=== PATIENT | male | born 1975 | race Asian ===

== ENCOUNTER 2022-07-12 09:11 | Emergency (ER) | payer BC ==
[2022-07-12 09:53] LABS: BASOPHILS # (AUTO) 0.1 10^3/uL (0.0-0.1); BASOPHILS % (AUTO) 0.7 %; EOSINOPHILS # (AUTO) 0.1 10^3/uL (0.0-0.7); EOSINOPHILS % (AUTO) 1.1 %; HCT - HEMATOCRIT 47.4 % (42.0-52.0); HGB - HEMOGLOBIN 15.9 g/dL (14.0-18.0); LYMPHOCYTES # (AUTO) 2.1 10^3/uL (1.5-3.5); LYMPHOCYTES % (AUTO) 24.3 %; MEAN CORPUSCULAR HEMOGLOBIN 30.6 pg (27.0-31.0); MEAN CORPUSCULAR HGB CONC 33.5 g/dL (32.0-36.0); MEAN CORPUSCULAR VOLUME 91.2 fL (80.0-94.0); MONOCYTES # (AUTO) 0.5 10^3/uL (0.0-1.0); MONOCYTES % (AUTO) 5.7 %; NEUTROPHILS # (AUTO) 5.9 10^3/uL (1.5-6.6); NEUTROPHILS % (AUTO) 67.7 %; PLT - PLATELET COUNT 210 10^3/uL (130-450); WHITE BLOOD COUNT 8.7 x10^3/uL (4.8-10.8)
--- NOTE | 2022-07-12 09:57 | XRAY Report ---
PROCEDURE: Chest 1 View X-Ray INDICATIONS: Chest pain TECHNIQUE: One view of the chest was acquired. COMPARISON: None FINDINGS: Surgical changes and devices: None. Lungs and pleura: No pleural effusions or pneumothorax. Lungs are clear. Mediastinum: Mediastinal contours appear normal. Heart size is normal. Bones and chest wall: No suspicious bony lesions. Overlying soft tissues appear unremarkable. IMPRESSION: No acute radiographic abnormality. Reviewed by: Jarad Cruz MD on 07/12/2022 9:56 AM PDT Approved by: Jarad Cruz MD on 07/12/2022 9:56 AM PDT Station ID: [id number]
[2022-07-12 10:07] LABS: ALBUMIN 4.6 g/dL (3.2-5.5); ALBUMIN/GLOBULIN RATIO 1.5 (1.0-2.2); BILIRUBIN,TOTAL 1.1 mg/dL (0.2-1.0); CALCIUM 9.7 mg/dL (8.5-10.3); CREATININE 1.1 mg/dL (0.6-1.2); POTASSIUM 4.2 mmol/L (3.5-5.0); TOTAL PROTEIN 7.6 g/dL (6.7-8.2)
[2022-07-12 13:30] VITALS: BP 147/89
--- NOTE | 2022-07-12 13:53 | ED Physician Documentation ---
PD HPI CHEST PAIN - Stated complaint Stated Complaint: L ARM TINGLING/SORENESS - Chief complaint Chief Complaint: Ext Problem - History obtained from History obtained from: Patient - History of Present Illness Timing - onset: How many days ago (4) Timing - onset during: Rest Timing - duration: Days (4) Timing - details: Abrupt onset, Now resolved, Waxing and waning Pain level now: 0 Quality: Tightness, Sharp, Pain Location: Left shoulder/arm Radiation: No: Jaw, Neck, Back, Abdominal, Left upper extremity, Right upper extremity Improved by: Nothing Worsened by: Other (nothing) Associated symptoms: No: Shortness of air, Diaphoresis, Nausea, Vomiting, Feeling faint / dizzy, General Weakness, Palpitations, Cough Similar symptoms before: Has not had sx before Recently seen: Other (had covid booster 2 wks ago.) - Additional information Additional information: Kimberly Hurtado is a 46-year-old male without specific past medical history who received his COVID booster 2 weeks ago and 4 days ago developed some numbness to his left arm that eventually radiated to the forearm and this is resolved. He has had recurrent episodes of this numbness and pain without specific modifying factors. He has had this occur at rest only and he has had no exertional component no diaphoresis no nausea no shortness of breath and no near syncope. He is currently symptom-free. He denies any pain in his neck. Denies any shortness of breath. Review of Systems Constitutional: denies: Fever Eyes: denies: Decreased vision Ears: denies: Ear pain Nose: denies: Rhinorrhea / runny nose, Congestion Throat: denies: Sore throat Cardiac: reports: Chest pain / pressure. denies: Palpitations, Pedal edema, Ca lf pain Respiratory: denies: Dyspnea, Cough, Wheezing GI: denies: Abdominal Pain, Nausea, Vomiting, Constipation, Diarrhea : denies: Dysuria Skin: denies: Rash Musculoskeletal: reports: Extremity pain. denies: Neck pain, Back pain Neurologic: denies: Generalized weakness, Focal weakness, Numbness PD PAST MEDICAL HISTORY - Past Medical History Past Medical History: No - Past Surgical History Past Surgical History: No - Present Medications Home Medications: Ambulatory Orders Medication Instructions Recorded Confirmed No Known Home Medications 07/12/22 07/12/22 - Allergies Allergies/Adverse Reactions: Allergies Allergy/AdvReac Type Severity Reaction Status Date / Time No Known Drug Allergies Allergy Verified 07/12/22 09:25 - Social History Does the pt smoke?: No Smoking Status: Never smoker Does the pt drink ETOH?: Yes Does the pt have substance abuse?: No - Immunizations Immunizations are current?: Yes PD ED PE NORMAL - Vitals Vital signs reviewed: Yes (Hypertensive mild) - General General: Alert and oriented X 3, No acute distress, Well developed/nourished - HEENT HEENT: Atraumatic, PERRL, EOMI - Neck Neck: Supple, no meningeal sign, No bony TTP - Cardiac Cardiac: RRR, No murmur - Respiratory Respiratory: No respiratory distress, Clear bilaterally - Abdomen Abdomen: Normal bowel sounds, Soft, Non tender, Non distended, No organomegaly - Back Back: No CVA TTP, No spinal TTP - Derm Derm: Normal color, Warm and dry, No rash - Extremities Extremities: No deformity, No edema - Neuro Neuro: Alert and oriented X 3, testing director 2-12 intact, No motor deficit, No sensory deficit, Normal speech Eye Opening: Spontaneous Motor: Obeys Commands Verbal: Oriented GCS Score: 15 - Psych Psych: Normal mood, Normal affect Results - Vitals Vitals: Vital Signs - 24 hr 07/12/22 07/12/22 09:18 13:29 Temperature 36.8 C 36.9 C Heart Rate 86 76 Respiratory 16 18 Rate Blood Pressure 137/91 H 147/89 H O2 Saturation 98 99 Oxygen O2 Source Room air - EKG (time done) 0927 Rate: Rate (enter#) (81) Rhythm: NSR Ischemia: Normal ST segments Compare to prior EKG: Old EKG unavailable Computer interpretation: Agree with computer - Labs Labs: Laboratory Tests 07/12/22 07/12/22 07/12/22 09:48 09:48 09:48 WBC 8.7 RBC 5.20 Hgb 15.9 Hct 47.4 MCV 91.2 MCH 30.6 MCHC 33.5 RDW 12.0 Plt Count 210 MPV 12.0 H Neut # (Auto) 5.9 Lymph # (Auto) 2.1 [place] # (Auto) 0.5 Eos # (Auto) 0.1 Baso # (Auto) 0.1 Absolute Nucleated RBC 0.00 Nucleated RBC % 0.0 Sodium 139 Potassium 4.2 Chloride 103 Carbon Dioxide 31 Anion Gap 5.0 L BUN 17 Creatinine 1.1 Estimated GFR (MDRD) 73 L Glucose 102 H Calcium 9.7 Total Bilirubin 1.1 H AST 31 ALT 63 H Alkaline Phosphatase 52 Troponin I High Sens < 2.3 L Total Protein 7.6 Albumin 4.6 Globulin 3.0 Albumin/Globulin Ratio 1.5 Lipase 47 - Rads (name of study) Chest Radiology: Prelim report reviewed (Impression: No acute radiographic abnormality.), EMP read indepedently, See rad report PD MEDICAL DECISION MAKING - ED course Complexity details: reviewed old records, reviewed results, re-evaluated patient, considered differential, d/w patient ED course: 46-year-old male with intermittent numbness and pain to the left arm and anterior chest has no modifying factors for this pain that occurs at rest. He has a normal electrocardiogram and normal blood work normal sensitive troponin and had an episode of pain lasting for four hours last night. I found it highly unlikely to be a coronary syndrome I did consider the possibility of shingles I found no evidence of rash and I was am not able to elicit a history of lancinating pain. I considered the possibility of a cervical radiculopathy there are no hard findings and the patient does not have pain in his neck does not have stiff muscles in his neck or shoulder. He did have a COVID booster 2 weeks ago and this may be related. I have indicated to the patient that we did not find significant abnormality in the testing we did that I am confident this is not a coronary syndrome I do not find evidence to consider pulmonary embolism or other abnormality of the chest as a etiology and my highest suspicion is for delayed side effect of his COVID booster. Departure - Departure Disposition: 01 Home, Self Care Clinical Impression: Atypical chest pain Pain of upper extremity Qualifiers: Laterality: left Qualified Code(s): M79.602 - Pain in left arm Condition: Stable Instructions: ED Chest Pain Atypical Unkn Cause Follow-Up: Your, doctor [Other] Comments: Peter, on your work-up today we found a normal electrocardiogram a normal- appearing chest x-ray and normal blood counts electrolytes, enzymes and no evidence of damage to your heart, (with a sensitive measure of heart damage). I did not find evidence of shingles. A pinched nerve in your neck seems less likely as we did not find the typical stiff neck and sore muscles in the neck and shoulder. My best guess is that this is an idiopathic reaction to your recent COVID booster and this we expect to resolve itself within the week. If you continue to have this a follow up with your primary is indicated.
== END 2022-07-12 14:11 | disposition home or self-care (01) ==
LOC: ED 09:11
DX: R07.89 Other chest pain (principal); M79.602 Pain in left arm
CPT/HCPCS: 36415; 80053; 83690; 84484; 85025; 93005; 99284

== ENCOUNTER 2023-09-13 18:08 | Outpatient (CLI) | payer OTHER, BC | END 2023-09-13 18:09 | disposition EMS.NT | LOC: EMS 18:08 | DX: M54.2 Cervicalgia (principal); M25.512 Pain in left shoulder; S01.111A Laceration without foreign body of right eyelid and periocular area, initial encounter; V48.5XXA Car driver injured in noncollision transport accident in traffic accident, initial encounter; Y92.413 State road as the place of occurrence of the external cause ==